=== PATIENT | female | born 1950 | race Asian ===

== ENCOUNTER 2022-10-16 18:30 | Emergency (ER) | payer OTHER ==
[~2022-10-16] VITALS: Ht 162.6 cm; Wt 71.2 kg
[~2022-10-16 18:30] MED LIST: AMOX875T8 PO
[2022-10-16 19:31] LABS: PLATELET COUNT 200 K/uL (152-353)
[2022-10-16 19:43] LABS: POTASSIUM 3.5 mmol/L (3.6-5.2)
[2022-10-17] MEDS ORDERED: LIPITOR20 MG PO (07:13)
[2022-10-17] MEDS ORDERED: GLIPIZIDE PO (07:14)
[2022-10-17] MEDS ORDERED: ZESTRIL40 MG PO (07:15)
[2022-10-17] MEDS ORDERED: LEVEMIR FL100 UNIT/M SC (07:15)
[2022-10-17] MEDS ORDERED: VITAMIN D32000 UNI3 PO (07:16)
[2022-10-17] MEDS ORDERED: ELIQUIS5 MG PO (07:17)
[2022-10-17] MEDS ORDERED: CLON0.1T16 PO (07:17)
[2022-10-17] MEDS ORDERED: KEPPRA1000 MG PO (07:18)
[2022-10-17] MEDS ORDERED: LOPRESSOR100 MG PO (07:18)
[2022-10-17] MEDS ORDERED: GABA400C2 PO (07:19)
[2022-10-17] MEDS ORDERED: NOVOLOG FL100 UNIT/M SC (07:21)
[2022-10-17] MEDS ORDERED: DICLOFENAC SODIUM1 % TOP (07:22)
[2022-10-17] MEDS ORDERED: GLUCAGON1 M1 IM (07:23)
[2022-10-17] MEDS ORDERED: GLUCOSE40 % PO (07:25)
[2022-10-17] MEDS ORDERED: TYLENOL325 MG PO (07:27)
== END 2022-10-16 23:08 | disposition still patient (30) ==
LOC: ED 18:49
PROVIDERS: Emergency Medicine
DX: F03.90 Unspecified dementia, unspecified severity, without behavioral disturbance, psychotic disturbance, mood disturbance, and anxiety (principal); R45.1 Restlessness and agitation; E16.2 Hypoglycemia, unspecified; E86.0 Dehydration
CPT/HCPCS: 36415; 80053; 81002; 85008; 85027; 87635; 93005; 99283; U0003